=== PATIENT | female | born 1950 | race Caucasian/White ===

== ENCOUNTER 2021-09-14 11:44 | Emergency (ER) | payer BC ==
[2021-09-14 12:00] VITALS: BP 124/80; PULSE 70; TEMP 97.8; BMI 19.5
[2021-09-14] MEDS ORDERED: IBUPROFEN 600 MG TABLET (FP) PO ONE ×2 (13:59→14:01)
== END 2021-09-14 15:38 | disposition home or self-care (01) ==
LOC: JERFT 11:44
DX: S92.354A Nondisplaced fracture of fifth metatarsal bone, right foot, initial encounter for closed fracture (principal); W01.0XXA Fall on same level from slipping, tripping and stumbling without subsequent striking against object, initial encounter
CPT/HCPCS: 73610-TC-RT-FY; 73630-TC-RT-FY; 99283-25